=== PATIENT | female | born 1945 | race Caucasian/White ===

== ENCOUNTER 2018-04-17 07:28 | Outpatient (CLI) | payer OTHER ==
[~2018-04-17 07:28] MED LIST: Apresoline 20MG Vial PO; BACITRACIN TP; CATAFLAM50 MG PO; DIOVAN HCT 160-1 TAB PO; EFFEXOR25 MG PO; ENOXAPARIN SUBCUTANEO; FLEXERIL10 MG PO; Folic Acid PO; HUMALOG100 U/ML SQ; HumaLOG 100 UNIT/1 ML (3ML) SUBCUTANEO; LANTUS100 U/ML SQ; LASIX 20 MG PO; LEVAQUIN-D5W5 MG/M2 PO; LINEZOLID 600 MG/300 ML IV; Lantus 1000 U/10 ML SUBCUTANEO; Neurin-Sl Tablet Sl SL; ORPH100T PO; OXYC1TAB9 PO; PRE-PROTEIN (20) PO; ULTRAM50 MG PO; Vitamin B-1 PO; Vitamin B-6 PO; Xopenex 0.63 MG/3 ML SOLUTION IH; ZOFRAN 2 MG/ML PO; [UNRECOGNIZED DRUG - OTHER] SUBCUTANEO
== END 2018-04-17 07:32 | disposition home or self-care (01) ==
LOC: SONOGRAMA 07:28
DX: E04.1 Nontoxic single thyroid nodule (principal)